=== PATIENT | male | born 1945 | race American Indian/Alaskan Native ===

== ENCOUNTER 2019-06-18 09:35 | Outpatient (CLI) | payer OTHER | END 2019-06-18 09:36 | disposition home or self-care (01) | LOC: NUCLEAR 09:35 | DX: J84.112 Idiopathic pulmonary fibrosis (principal) | CPT/HCPCS: 78802; A9556 ==

== ENCOUNTER 2019-10-19 07:22 | Outpatient (CLI) | payer OTHER | END 2019-10-19 07:32 | disposition home or self-care (01) | LOC: NUCLEAR 07:22 | DX: I25.89 Other forms of chronic ischemic heart disease (principal) | CPT/HCPCS: 78452; 93017; A9500 ==